=== PATIENT | male | born 1990 | race Caucasian/White ===

== ENCOUNTER 2017-05-07 19:26 | Emergency (ER) | payer OTHER, BC ==
[~2017-05-07] VITALS: Ht 182.9 cm; Wt 127.1 kg
[~2017-05-07 19:26] MED LIST: [UNRECOGNIZED DRUG - OTHER]
[2017-05-07 19:31] VITALS: TEMP 36.7; Ht 182.9 cm; Wt 127.1 kg
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
[2017-05-07] MEDS ORDERED: NORCO 5/325MG HOME PACK PO ONE (21:00)
[2017-05-07] MEDS ORDERED: ONDANSETRON HOME PACK 4MG OD TAB PO ONE (21:00)
[2017-05-07 21:05] VITALS: BP 134/72; PULSE 72; O2SAT 98
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
== END 2017-05-07 21:07 | disposition home or self-care (01) ==
LOC: C.EDB 19:27 → C.EDD 21:07
DX: S06.0X0A Concussion without loss of consciousness, initial encounter (principal); V89.2XXA Person injured in unspecified motor-vehicle accident, traffic, initial encounter; Y92.488 Other paved roadways as the place of occurrence of the external cause